=== PATIENT | male | born 1995 | race Caucasian/White ===

== ENCOUNTER 2023-12-11 12:17 | Emergency (ER) | payer BC, OTHER, SELFPAY ==
[2023-12-11] VITALS (8 sets, daily range): BP systolic 84–108; BP diastolic 47–70; PULSE 56–64
--- NOTE | 2023-12-11 12:34 | ED.GENMED ---
History of Present Illness
General
Chief Complaint: Fainting/Passed Out
Source: patient
Time Seen by Provider: 12/11/23 12:30
Travel History
Have you had any contact with someone who has COVID-19?: No
Do you have any symptoms of coronavirus? Fever > 100 degrees, chills, cough, shortness of breath, sore throat, loss of taste or smell, muscle aches, or headache?: No
History of Present Illness
History of Present Illness:
28-year-old male with past medical history of anxiety presents to the emergency department from outpatient labs after he was getting blood work drawn and during the lab work started to feel lightheaded and had a witnessed syncope lasting for a few
seconds, patient brought to the emergency department for further evaluation. Notes that he has never had history of this before but does note that the labs were fasting and he would have normally already eaten breakfast and had something to drink
at the time of his labs being drawn. Patient does state he feels still little bit lightheaded but otherwise denies any chest pain, shortness of breath, palpitations, diaphoresis, abdominal pain, nausea, vomiting, headaches. Patient denies any head
injury or any other concerns at this time.
Past History
Past History
ED Past Medical History: Psychiatric
ED Past Surgical History: None
Social History
Tobacco: Non-smoker
Alcohol: None
Drug: None
Personal: Single
Living: with family
Review of Systems
Review of Systems
All Other Systems: ROS reviewed and negative except as documented in HPI and ROS
Phy Exam
Physical Exam
Physical Exam:
GENERAL: Alert , in no apparent distress
EYE: conjunctiva clear
NECK: Supple
ENT: o/p clr, mmm.
CARDIAC: Regular rate and rhythm, no murmur
LUNGS: Clear breath sounds bilaterally, no acute respiratory distress, no wheezes/rales/rhonchi
NEUROLOGICAL: Alert and oriented
SKIN: Warm and dry, skin intact.
MUSCULOSKELETAL: well perfused.
PSYCH: Normal and appropriate interaction.
Scores
Heart Failure Risk
Heart Failure Risk Score: Not Applicable
Heart Score for Chest Pain Patients
STEMI patient?: Not applicable
Withdrawal Assessment of Alcohol
Withdrawal Assessment Completed?: Not applicable
Course
Orders/Labs/Results
Orders:
Orders
12/11/23 12:24
Electrocardiogram (*1) Urgent
Reason for Study: Fatigue / Weakness
EKG- Treatment ONCE
12/11/23 12:38
0.9% Sodium Chloride 1000 ml [Nss] 1,000 ml IV BOLUS
12/11/23 12:39
Complete Blood Count/With Diff Urgent
Comprehensive Metabolic Panel Urgent
12/11/23 12:49
Orthostatic VS- Treatment ONCE
Abnormal Lab Results
12/11/23
12:39
MCH 32.3 H pg
(27.0-31.0)
MPV 10.9 H fL
(7.4-10.4)
Glucose 141 H mg/dl
(70-99)
Total Bilirubin 1.8 H mg/dl
(0.2-1.3)
12/11/23 12:39
12/11/23 12:39
Vital Signs
Initial and Last Documented VS:
Initial Vital Signs
Temp Pulse Resp BP Pulse Ox
97.8 F 54 16 84/47 100
12/11/23 12:18 12/11/23 12:18 12/11/23 12:18 12/11/23 12:18 12/11/23 12:18
Last Documented Vital Signs
Temp Pulse Resp BP Pulse Ox
97.8 F 54 21 100/55 100
12/11/23 12:18 12/11/23 13:45 12/11/23 13:45 12/11/23 13:06 12/11/23 14:01
MDM/Problems Addressed
Differential Diagnosis Includes:
Vasovagal syncope, I do not have concern for cardiogenic syncope, electrolyte disturbance, dehydration
MDM/Problems Addressed:
28-year-old male presenting the emergency department from outpatient lab after he was getting blood work drawn and had a witnessed syncopal event to the emergency department still feeling, right slightly dizzy however does state feels much better
since arriving to the emergency department. Patient is unsure if labs were done. Nursing staff had already placed an IV and labs were drawn so we will send these. EKG shows a sinus bradycardia but without any interval changes. Blood pressure is
slightly low so we will treat with a liter of IV fluids and patient will drink fluids as well. Will check orthostatic vital signs. I do anticipate discharge home.
*Pulse Oximetry
Patient hypoxic: no
*EKG
Interpreted by ED Provider?: Yes
Comparison EKG: no comparison EKG present
Heart Rate: 54
Rate: bradycardiac
Rhythm: sinus
[place]: normal axis
Ischemia: no ischemia
*B[employer] Interpretation
Rate: bradycardiac
Rhythm: sinus
*Critical Care Note
Total Time (30-74mins, 75-104mins- exclusive of procedures): Not Applicable
Patient Management
Escalation/DeEscalation of care consider admission/obs:
Patient remains hemodynamically stable and feels back to baseline. Workup is unremarkable for any acute pathology. He is stable for discharge home and aware of return precautions.
ED Attending Note
-
Portions of this chart may have been created with voice recognition software.� Occasional wrong word or��sound alike� substitutions may have occurred due to the inherent limitations of voice recognition software.
Discharge Plan
Departure
Patient Disposition: Home (Routine Discharge)
Date of Disposition: 12/11/23
Time of Disposition: 13:54
Patient with high blood pressure during this ER visit?: No
Discharge Problem:
Vasovagal response
Instructions: Syncope (Fainting) (DC)
Prescriptions:
No Action
guanfacine 1 mg Tablet
0.5 mg PO BID@1500,2099
fluticasone propionate [Flonase] 50 mcg/actuation [place],Suspension
2 spray INTRANASAL DAILY@2099
fluticasone propionate [Flovent HFA] 110 mcg/actuation Hfa Aerosol Inhaler
2 puff INHALATION R DAILY@2099
escitalopram oxalate 10 mg Tablet
10 mg PO DAILY@2099
Referrals:
Rome Rodgers DO [Family Provider] -
Interventions
Interventions:
*Risk Screen - Suicide Last Done: 12/11/23 12:42
*General Assessment Last Done: 12/11/23 12:18
*Neglect/Abuse Screening Last Done: 12/11/23 12:42
ED- Fall Risk Assessment Last Done: 12/11/23 14:02
*ED COVID-19 Vaccine History Last Done: 12/11/23 12:18
*Nursing Disposition Last Done: 12/11/23 14:02
ED- Cardiac Assessment Last Done: 12/11/23 12:36
ED- Neurological Assessment Last Done: 12/11/23 12:36
Discharge Date and Time
Discharge Date/Time: 12/11/23 14:10
[2023-12-11] MEDS: NSS 1000 IV (12:38)
[2023-12-11 12:50] LABS: % Basophils 0.8 % (0-2); % Eosinophils 1.4 % (0-6); % Immature Granulocytes 0.2 % (0-0.5); % Lymphocytes 39.4 % (20.5-51.1); % Monocytes 4.2 % (1.7-9.3); Absolute Basophils 0.1 10^3/uL (0-0.2); Absolute Eosinophils 0.1 10^3/uL (0-0.7); Absolute Lymphocytes 2.6 10^3/uL (1.2-3.4); Absolute Monocytes 0.3 10^3/uL (0.1-0.6); Absolute Neutrophils 3.6 10^3/uL (1.4-6.5); Hematocrit 46.2 % (39.0-52.0); Hemoglobin 16.3 g/dL (13.0-18.0); Mean Corp Hgb Conc. 35.3 g/dL (33.0-37.0); Mean Corpuscular Hgb 32.3 pg (27.0-31.0); Mean Corpuscular Volume 91.7 fL (80.0-94.0); Mean Platelet Volume 10.9 fL (7.4-10.4); Nucleated Red Blood Cells % 0 % (-); Platelet Count 198 10^3/uL (130-400); Red Blood Cell Count 5.04 10^6/uL (4.70-6.10); Red Cell Dist. Width 12.5 % (11.5-14.5); White Blood Cell Count 6.6 10^3/uL (4.8-10.8)
[2023-12-11 13:03] LABS: ALT (SGPT) 17 U/L (0-50); AST (SGOT) 24 U/L (17-59); Albumin 4.8 g/dl (3.5-5.0); Alkaline Phosphatase 78 U/L (38-126); Blood Urea Nitrogen 19 mg/dl (9-20); Calcium 9.5 mg/dl (8.4-10.2); Carbon Dioxide 27 mmol/L (22-30); Chloride 98 mmol/L (98-107); Glucose 141 mg/dl (70-99); Potassium 4.7 mmol/L (3.5-5.1); Sodium 139 mmol/L (135-145); Total Bilirubin 1.8 mg/dl (0.2-1.3); Total Protein 7.7 g/dl (6.3-8.2); eGFR > 60.00
== END 2023-12-11 14:10 | disposition home or self-care (01) ==
LOC: EMR 12:17
PROVIDERS: Emergency Medicine; EMERGENCY PHYSICIAN Emergency Medicine; FAMILY PHYSICIAN Family Medicine
DX: R55 Syncope and collapse (principal); F41.9 Anxiety disorder, unspecified
CPT/HCPCS: 99284; 96360; 80053; 85025; 93005

== ENCOUNTER → 2025-01-06 09:02 | Outpatient (REF) | payer BC, SELFPAY ==
[2025-01-06 09:57] LABS: % Basophils 1.1 % (0-2); % Eosinophils 1.4 % (0-6); % Immature Granulocytes 0.2 % (0-0.5); % Monocytes 5.5 % (1.7-9.3); % Neutrophils 54.8 % (42.2-75.2); Absolute Basophils 0.1 10^3/uL (0-0.2); Absolute Eosinophils 0.1 10^3/uL (0-0.7); Absolute Lymphocytes 2.4 10^3/uL (1.2-3.4); Absolute Monocytes 0.4 10^3/uL (0.1-0.6); Absolute Neutrophils 3.5 10^3/uL (1.4-6.5); Hematocrit 46.4 % (39.0-52.0); Hemoglobin 15.8 g/dL (13.0-18.0); Mean Corp Hgb Conc. 34.1 g/dL (33.0-37.0); Mean Corpuscular Volume 94.1 fL (80.0-94.0); Mean Platelet Volume 10.6 fL (7.4-10.4); Nucleated Red Blood Cells % 0 % (-); Platelet Count 201 10^3/uL (130-400); Red Blood Cell Count 4.93 10^6/uL (4.70-6.10); Red Cell Dist. Width 12.9 % (11.5-14.5); White Blood Cell Count 6.4 10^3/uL (4.8-10.8)
[2025-01-06 11:07] LABS: C-Reactive Protein < 5.00 mg/L (0.0-10.00)
[2025-01-06 11:11] LABS: ALT (SGPT) 19 U/L (0-50); AST (SGOT) 26 U/L (17-59); Alkaline Phosphatase 72 U/L (38-126); Blood Urea Nitrogen 17 mg/dl (9-20); Calcium 8.8 mg/dl (8.4-10.2); Carbon Dioxide 28 mmol/L (22-30); Chloride 97 mmol/L (98-107); Glucose 95 mg/dl (70-99); HDL Cholesterol 41 mg/dl; LDL Cholesterol, Calculated 117 mg/dl; Potassium 4.2 mmol/L (3.5-5.1); Sodium 137 mmol/L (135-145); Total Bilirubin 2.3 mg/dl (0.2-1.3); Total Cholesterol 193 mg/dl (50-199); Total Protein 7.9 g/dl (6.3-8.2); Triglyceride 178 mg/dl (10-149); Very Low Density Lipoprotein 35 mg/dl (0-30); eGFR > 60.00
[2025-01-06 11:22] LABS: Erythrocyte Sed Rate 9 mm/hour (0-20)
[2025-01-06 11:38] LABS: TSH 2.37 uIU/ml (0.47-4.68)
[2025-01-06 12:19] LABS: Lyme Antibody Screen, EIA Presump. Positive (Negative); Rheumatoid Agglutinin Less Than 10 IU (<10 IU)
[2025-01-07 18:23] LABS: CCP Antibody IgG/IgA 5 Units (0-19)
[2025-01-08 03:30] LABS: ANA, IgG Reflex to HEp-2 None Detected (None Detected)
[2025-01-08 16:33] LABS: Lyme Ab Western Blot IgG Negative (Negative); Lyme Ab Western Blot IgM Positive (Negative)
== END ==
LOC: REG 09:02
PROVIDERS: ATTENDING PHYSICIAN Family Medicine
DX: M79.641 Pain in right hand (principal); M79.642 Pain in left hand; Z00.00 Encounter for general adult medical examination without abnormal findings
CPT/HCPCS: 36415; 80053; 80061; 84443; 85025; 85652; 86038; 86140; 86200; 86430; 86617; 86618

== ENCOUNTER → 2025-02-14 09:01 | Outpatient (REF) | payer BC, SELFPAY ==
[2025-02-14 10:22] LABS: Direct Bilirubin 0.2 mg/dl (0.0-0.4); Total Bilirubin 1.8 mg/dl (0.2-1.3)
== END ==
LOC: REG 09:01
PROVIDERS: ATTENDING PHYSICIAN Family Medicine
DX: E80.4 Gilbert syndrome (principal)
CPT/HCPCS: 36415; 82247; 82248